=== PATIENT | female | born 1995 | race Caucasian/White ===

== ENCOUNTER 2019-03-26 06:33 | Day surgery (SDC) | payer OTHER ==
[2019-03-26 07:21] LABS: ADD MAN DIFF? NO
[2019-03-26 07:23] LABS: WHITE BLOOD COUNT 7.3 10^3/ul (4.8-10.8)
[2019-03-26 07:23] LABS: BASOPHILS % 0.1 % (0.0-2.0); EOSINOPHILS # 0.1 10^3/ul (0.0-0.5); EOSINOPHILS % 0.7 % (0.0-7.0); HEMATOCRIT 32.6 % (37.0-47.0); HEMOGLOBIN 9.8 g/dl (12.0-16.0); LYMPHOCYTES # 2.3 10^3/ul (0.8-2.9); LYMPHOCYTES % 31.2 % (15.0-51.0); MEAN CORPUSCULAR HEMOGLOBIN 21.5 pg (29.0-33.0); MEAN CORPUSCULAR HGB CONC 30.1 g/dl (32.0-37.0); MEAN CORPUSCULAR VOLUME 71.5 fl (82.0-101.0); MEAN PLATELET VOLUME 10.8 fl (7.4-10.4); MONOCYTE # 0.9 10^3/ul (0.3-0.9); MONOCYTES % 12.4 % (0.0-11.0); NEUTROPHILS % 55.5 % (39.0-77.0); PLATELET COUNT 238 10^3/UL (140-415); RED BLOOD COUNT 4.56 10^6/ul (4.20-5.40); RED CELL DISTRIBUTION WIDTH 17.3 % (11.5-14.5)
[2019-03-26 07:30] LABS: HOLD TRANSMISSIONS 1
[2019-03-26] MEDS ORDERED: PROPOFOL 100 ML (07:59)
[2019-03-26] MEDS ORDERED: STRONG IODINE 14 ML SOLUTION TOP (08:00)
[2019-03-26] MEDS ORDERED: FENTAnyl 50 MCG/ML VIAL (08:03)
[2019-03-26] MEDS ORDERED: LIDOCAINE 2% (SDV) 5 ML INJ (08:03)
[2019-03-26] MEDS ORDERED: DEXAMETHASONE 4 MG/ML 5 ML INJ (09:25)
[2019-03-26] MEDS ORDERED: ONDANSETRON 4 MG INJ ×2 (09:26→09:41)
[2019-03-26] MEDS ORDERED: KETOROLAC 30 MG INJ IV (10:00)
[2019-03-26] MEDS ORDERED: OXYCODONE/ACETAMINOPHEN (5/325) TAB PO ×2 (10:00)
[2019-03-26] MEDS ORDERED: MEPERIDINE 25 MG INJ IV (10:00)
[2019-03-26] MEDS ORDERED: ALBUTEROL 0.083% (NEB) 2.5 MG/3 ML AMP HHN (10:00)
[2019-03-26] MEDS ORDERED: DIPHENHYDRAMINE 50 MG INJ IV (10:00)
[2019-03-26] MEDS ORDERED: LABETALOL HCL 20MG INJ IV (10:00)
[2019-03-26] MEDS ORDERED: hydrALAzine 20 MG INJ IV (10:00)
[2019-03-26] MEDS ORDERED: ONDANSETRON 4 MG INJ IV (10:00)
[2019-03-26] MEDS ORDERED: FENTAnyl 50 MCG/ML VIAL IV ×3 (10:00)
[2019-03-26] MEDS ORDERED: EPHEDrine SULFATE 50 MG/5 ML SYG IV (10:00)
== END 2019-03-26 11:30 | disposition home or self-care (01) ==
LOC: SDS 06:33
DX: N87.9 Dysplasia of cervix uteri, unspecified (principal)
CPT/HCPCS: 57522; 84702; 85025; 86850; 86900; 86901; 88305